=== PATIENT | male | born 1990 | race Caucasian/White ===

== ENCOUNTER → 2017-10-22 | Outpatient (CLI) | payer OTHER ==
[~2017-10-22] MED LIST: FLEXERIL PO; HYDROCODONE-AP1 EAC6 PO; IBUPROFEN 800800 M1 PO
== END ==
LOC: M.NUC 12:44
DX: R10.13 Epigastric pain (principal); R10.10 Upper abdominal pain, unspecified

== ENCOUNTER 2019-07-06 21:18 | Emergency (ER) | payer OTHER ==
[~2019-07-06] VITALS: Ht 180.3 cm; Wt 95.3 kg
[2019-07-06] MEDS ORDERED: [UNRECOGNIZED DRUG - OTHER] (21:25)
[2019-07-06] MEDS ORDERED: BENTYL 10 MG CA10 M1 PO (21:25)
[2019-07-06] MEDS ORDERED: ASPIR 8181 MG PO (21:26)
[2019-07-06 21:45] VITALS: BP 131/96
--- NOTE | 2019-07-07 14:07 | EKG ---
[place] [address] ELECTROCARDIOGRAM REPORT Name: KELLY ROMERO [id number] Admission: 07/06/19 Attend Phys: Discharge: 07/06/19 Date of : 89 Report #: [id number] THIS REPORT FOR: //name// [facility] ED Test Date: 2019-07-06 Test Time: 21:22:07 Pat Name: KELLY NICK Department: Room: Gender: M Teacher Learning Disabled: GOVIND : 1990 Requested By: Hayden Hoskins Order Number: [id number] MD: Jeremie Mckeon Measurements Intervals [place] Rate: 72 P: 27 WA: 175 QRS: 12 QRSD: 91 T: 28 QT: 357 QTc: 391 Interpretive Statements Sinus rhythm No previous ECG available for comparison Electronically Signed On 07-07-2019 14:07:03 CDT by Jeremie Mckeon [email or web address] <ELECTRONICALLY SIGNED> By: Jeremie Mckeon MD, [facility] 07/07/19 1407 [id number] 21 Jeremie Mckeon MD, FACC /EPI
== END 2019-07-06 21:45 | disposition home or self-care (01) ==
LOC: M.ERS 21:18
DX: F41.0 Panic disorder [episodic paroxysmal anxiety] (principal); I48.91 Unspecified atrial fibrillation; Z90.49 Acquired absence of other specified parts of digestive tract